=== PATIENT | female | born 2000 ===

== ENCOUNTER 2025-01-02 20:19 | Outpatient (REF) | payer OTHER, SELFPAY ==
--- OUTSIDE RECORDS SUMMARY | 2025-01-02 14:00 | XMS_ITS | Encounter Summary ---
Author Organization [facility] Address [address] [facility] [place] [address] Care Team Providers Care Slag Worker Name Role Phone Unavailable Primary Care Provider Unavailabl e Reason for Visit * Reason Comments Gynecologic Exam Encounter Details Date Type Department Care Team (Late st Contact Info) Description 01/02/2025 2:00 PM EDT Office Visit [facility] [address] [place] [phone] Priti Maier PA [address] [place] [address] Well woman exam with routine gynecological exam Social History Tobacco Use Types Packs/Day Years Used Date Smoking Tobacco: Never Assessed Comments No Sex and Gender Information Value Date Recorded Sex Assigned at Female 12/30/2024 2:24 PM EDT Legal Sex Female 11:44 AM EDT Gender Identity Female 12/30/2024 2:24 PM EDT Sexual Orientation Bisexual 12/30/2024 2: 24 PM EDT documented as of this encounter Last Filed Vital Signs Vital Sign Reading Time Taken Comments Blood Pressure 126/82 01/02/2025 2:42 PM EDT Pulse - - Temperature - - Respiratory Rate - - Oxygen Saturation - - Inhaled Oxygen Concentration - - Weight 105 kg (231 lb 2.4 oz) 01/02/2025 2:42 PM EDT Height 165.1 cm (5' 5 ) 01/02/2025 2:42 PM EDT Body Mass Index 38.47 01/02/2025 2:42 PM EDT documented in this encounter Progress Notes * Evi Alatorre LPN - 01/02/2025 2:00 PM EDT Reason for Appointment: Patient ID: Rosamaria Krishnan is a 24 y.o. female who presents for No chief complaint on file. Patient presents today for Annual Exam. MEDICATIONS No current outpatient medications ALLERGIES Not on File PROBLEMS Active Ambulatory Problems Diagnosis Date Noted No Active Ambulatory Problems Resolved Ambulatory Problems Diagnosis Date Noted No Resolved Ambulatory Problems No Additional Past Medical History HISTORY PAST MEDICAL HISTORY SOCIAL HISTORY No past medical history on file. Social History Tobacco Use Smoking status: Not on file Smokeless tobacco: Not on file Substance Use Topics Alcohol use: Not on file Drug use: Not on file FAMILY HISTORY No family history on file. SURGICAL HISTORY No past surgical history on file. REVIEW OF SYSTEMS Review of Systems: Review of Systems Constitutional: Negative. HENT: Negative. Eyes: Negative. Respiratory: Negative. Cardiovascular: Negative. Gastrointestinal: Negative. Genitourinary: Negative. Musculoskeletal: Negative. Skin: Negative. Neurological: Negative. All other systems reviewed and are negative. Hematological: Negative. Endocrine: Negative. Allergic/Immunologic: Negative. OBJECTIVE Objective: OBGyn Exam Vitals: There is no height or weight on file to calculate BMI. BP: No LMP recorded. ASSESSMENT & PLAN ICD-10-CM 1. Well woman exam with routine gynecological exam Z01.419 Patient presents to office today for her first PAP smear. Documented by on behalf of: BROWN Hyatt * Gail Miles NP - 01/02/2025 2:00 PM EDT Reason for Appointment: Patient ID: Rosamaria Krishnan is a 24 y.o. female who presents for Gynecologic Exam Patient presents today for Annual Exam. MEDICATIONS Current Outpatient Medications Medication Instructions etonogestrel-eluting (Nexplanon) 68 mg contraceptive implant etonogestrel-eluting (Nexplanon) 68 mg contraceptive implant 1 each, Once ALLERGIES No Known Allergies PROBLEMS Active Ambulatory Problems Diagnosis Date Noted No Active Ambulatory Problems Resolved Ambulatory Problems Diagnosis Date Noted No Resolved Ambulatory Problems Past Medical History: Diagnosis Date Sensory disorder HISTORY PAST MEDICAL HISTORY SOCIAL HISTORY Past Medical History: Diagnosis Date Sensory disorder Social History Tobacco Use Smoking status: Not on file Smokeless tobacco: Not on file Substance Use Topics Alcohol use: Not on file Drug use: Not on file FAMILY HISTORY No family history on file. SURGICAL HISTORY Past Surgical History: Procedure Laterality Date APPENDECTOMY at age 12-13 REVIEW OF SYSTEMS Review of Systems: Review of Systems Constitutional: Negative. HENT: Negative. Eyes: Negative. Respiratory: Negative. Cardiovascular: Negative. Gastrointestinal: Negative. Genitourinary: Negative. Musculoskeletal: Negative. Skin: Negative. Neurological: Negative. All other systems reviewed and are negative. Hematological: Negative. Endocrine: Negative. Allergic/Immunologic: Negative. OBJECTIVE Objective: Physical Exam Constitutional: Appearance: Normal appearance. She is well-developed. Genitourinary: Vulva normal. Breasts: Breasts are soft. Right: Normal. Left: Normal. Cardiovascular: Rate and Rhythm: Normal rate and regular rhythm. Pulmonary: Effort: Pulmonary effort is normal. Breath sounds: Normal breath sounds. Abdominal: General: Bowel sounds are normal. There is no distension. Palpations: Abdomen is soft. Tenderness: There is no abdominal tenderness. There is no guarding or rebound. Musculoskeletal: General: No swelling. Normal range of motion. Right lower leg: No edema. Left lower leg: No edema. Neurological: Mental Status: She is alert and oriented to person, place, and time. Skin: General: Skin is warm and dry. Psychiatric: Mood and Affect: Mood normal. Behavior: Behavior normal. Vitals and nursing note reviewed. Exam conducted with a boiler tester present. Vitals: Estimated body mass index is 38.47 kg/m?? as calculated from the following: Height as of this encounter: 5' 5 . Weight as of this encounter: 231 lb 2.4 oz. BP: 126/82 No LMP recorded. ASSESSMENT & PLAN ICD-10-CM 1. Well woman exam with routine gynecological exam Z01.419 Pap Smear Annual Exam: Patient presents today for an annual exam. Patient states she is doing well and has no complaints. Pap was obtained without difficulty. No orders of the defined types were placed in this encounter. Follow Up: Patient is to return in one year for annual unless needed otherwise. Documented by Gail Miles NP on behalf of: BROWN Hyatt documented in this encounter Plan of Treatment Upcoming Encounters Date Type Department Care Team (Late st Contact Info) Description 01/04/2026 3:00 PM EDT Office Visit [facility] [address] [place] [phone] Priti Maier PA [address] [place] [address] Scheduled Orders Name Type Priority Associated Diagnoses Orde r Schedule Pap Smear Pathology and Cytology Routine Well woman exam with routine gynecological exam Ordered: 01/02/2025 documented as of this encounter Visit Diagnoses Diagnosis Well woman exam with routine gynecological exam Routine gynecological examination documented in this encounter
--- OUTSIDE RECORDS SUMMARY | 2025-01-02 20:22 | XMS_ITS | Encounter Summary ---
Author Organization [facility] Address [address] [facility] [place] [address] Care Team Providers Care Subsea Engineer Name Role Phone Unavailable Primary Care Provider Unavailabl e Encounter Details Date Type Department Care Team (Late st Contact Info) Description 01/02/2025 Bamboo flowsheet [facility] [address] [place] [address] Priti Maier PA [address] [place] [address] [address] [place], [facility] Social History Tobacco Use Types Packs/Day Years Used Date Smoking Tobacco: Never Assessed Comments No Sex and Gender Information Value Date Recorded Sex Assigned at Female 12/30/2024 2:24 PM EDT Legal Sex Female 11:44 AM EDT Gender Identity Female 12/30/2024 2:24 PM EDT Sexual Orientation Bisexual 12/30/2024 2: 24 PM EDT documented as of this encounter Plan of Treatment Upcoming Encounters Date Type Department Care Team (Late st Contact Info) Description 01/04/2026 3:00 PM EDT Office Visit [facility] [address] [place] [address] Priti Maier PA [address] [place] [address] [place], [place] [id number] documented as of this encounter Visit Diagnoses Not on filedocumented in this encounter
--- OUTSIDE RECORDS SUMMARY | 2025-01-02 20:23 | XMS_ITS | Clinical Summary ---
Author Organization [facility] Address [address] [place] [address] Care Team Providers Care Physical Therapist Name Role Phone Unavailable Primary Care Provider Unavailabl e Allergies No known active allergies Medications etonogestrel-eluti ng (Nexplanon) 68 mg contraceptive implant 3 Active etonogestrel-eluti ng (Nexplanon) 68 mg contraceptive implant 1 each by Implant route 1 (one) time Active Encounters Date Type Department Care Team Description 01/02/2025 2:00 PM EDT Office Visit [facility] [address] [address] Priti Maier PA Well woman exam with routine gynecological exam 01/02/2025 Bamboo flowsheet [facility] [address] [address] Priti Maier PA from Last 3 Months Social History Tobacco Use Types Packs/Day Years Used Date Smoking Tobacco: Never Assessed Comments No Sex and Gender Information Value Date Recorded Sex Assigned at Female 12/30/2024 2:24 PM EDT Legal Sex Female 11:44 AM EDT Gender Identity Female 12/30/2024 2:24 PM EDT Sexual Orientation Bisexual 12/30/2024 2: 24 PM EDT Last Filed Vital Signs Vital Sign Reading [...] Mass Index 38.47 01/02/2025 2:42 PM EDT Plan of Treatment Upcoming Encounters Date Type Department Care Team (Late st Contact Info) Description 01/04/2026 3:00 PM EDT Office Visit [facility] [address] [phone] Priti Maier, PA [address] [place] [address] Insurance CIG
[2025-01-06 10:09] LABS: Age Gdln ACOG Testing Note (.); IGP, rfx Aptima HPV ASCU Note (.)
== END 2025-01-02 20:20 | disposition home or self-care (01) ==
LOC: LAB 20:19
PROVIDERS: Visit Provider Physician Assistant
DX: Z01.419 Encounter for gynecological examination (general) (routine) without abnormal findings (principal)
CPT/HCPCS: 88175